=== PATIENT | male | born 1950 ===

== ENCOUNTER 2022-12-28 12:01 | Outpatient (CLI) | payer SELFPAY | END 2022-12-28 12:02 | disposition short-term general hospital (02) | LOC: EMS 12:01 | DX: R41.82 Altered mental status, unspecified (principal); R61 Generalized hyperhidrosis; I10 Essential (primary) hypertension; R00.0 Tachycardia, unspecified; I48.91 Unspecified atrial fibrillation; R47.9 Unspecified speech disturbances | CPT/HCPCS: A0425; A0427 ==

== ENCOUNTER 2023-01-25 09:56 | Outpatient (CLI) | payer MEDICARE ==
--- NOTE | 2023-01-26 12:53 | XRAY Report ---
PROCEDURE: Foot 3 View RT INDICATIONS: RIGHT FOOT SPRAIN TECHNIQUE: 3 views of the foot were acquired. COMPARISON: None. FINDINGS: Bones: No displaced factors. Wispy, indistinct linear calcifications along the dorsal anterior talus and navicular, and lateral to the calcaneocuboid articulation are seen. These may be small cortical avulsion fractures. Bone alignment is otherwise normal No suspicious bony lesions. Soft tissues: No suspicious soft tissue calcifications or masses. Mild peripheral vascular calcifi cation. IMPRESSION: Possible mid to hindfoot cortical avulsion fractures versus degenerative osteophytes. Correlate with site of tenderness. Reviewed by: Elena Avila MD on 01/26/2023 12:51 PM PDT Approved by: Elena Avila MD on 01/26/2023 12:51 PM PDT Station ID: [id number]
== END 2023-01-25 23:59 | disposition home or self-care (01) ==
LOC: DI.S 09:56
PROVIDERS: ATTEND Emergency Medicine
DX: S93.611A Sprain of tarsal ligament of right foot, initial encounter (principal)

== ENCOUNTER 2023-10-03 08:00 | Outpatient (CLI) | payer MEDICARE | END 2023-10-03 23:59 | disposition critical access hospital (66) | LOC: EMS 08:00 | DX: R41.82 Altered mental status, unspecified (principal); R06.89 Other abnormalities of breathing; R45.6 Violent behavior | CPT/HCPCS: A0425; A0427 ==

== ENCOUNTER 2023-10-03 08:39 | Emergency (ER) | payer MEDICARE ==
[2023-10-03] MEDS: SODIUM CHLORIDE 0.9% 1,000 ML IV STA (09:18)
[2023-10-03 09:33] LABS: BASOPHILS # (AUTO) 0.1 10^3/uL (0.0-0.1); BASOPHILS % (AUTO) 0.6 %; EOSINOPHILS # (AUTO) 0.1 10^3/uL (0.0-0.7); EOSINOPHILS % (AUTO) 1.2 %; HCT - HEMATOCRIT 43.4 % (42.0-52.0); HGB - HEMOGLOBIN 14.7 g/dL (14.0-18.0); LYMPHOCYTES # (AUTO) 0.9 10^3/uL (1.5-3.5); MEAN CORPUSCULAR HEMOGLOBIN 33.1 pg (27.0-31.0); MEAN CORPUSCULAR HGB CONC 33.9 g/dL (32.0-36.0); MEAN CORPUSCULAR VOLUME 97.7 fL (80.0-94.0); MEAN PLATELET VOLUME 9.4 fL (7.4-11.4); MONOCYTES # (AUTO) 0.5 10^3/uL (0.0-1.0); MONOCYTES % (AUTO) 5.1 %; NEUTROPHILS # (AUTO) 8.3 10^3/uL (1.5-6.6); NEUTROPHILS % (AUTO) 83.7 %; PLT - PLATELET COUNT 183 10^3/uL (130-450); RED BLOOD COUNT 4.44 10^6/uL (4.70-6.10); WHITE BLOOD COUNT 9.9 x10^3/uL (4.8-10.8)
[2023-10-03 09:48] LABS: ALBUMIN 4.6 g/dL (3.2-5.5); ALBUMIN/GLOBULIN RATIO 1.9 (1.0-2.2); BILIRUBIN,TOTAL 0.7 mg/dL (0.2-1.0); CALCIUM 9.6 mg/dL (8.5-10.3); CREATININE 1.1 mg/dL (0.6-1.3); POTASSIUM 4.1 mmol/L (3.5-4.5)
--- NOTE | 2023-10-03 09:49 | CT Report ---
PROCEDURE: Head WO INDICATIONS: syncopal episode TECHNIQUE: Noncontrast 4.5 mm thick angled axial sections acquired from the foramen magnum to the vertex. For r adiation dose reduction, the following was used: automated exposure control, adjustment of mA and/or kV according to patient size. COMPARISON: None. FINDINGS: Image quality: Excellent. CSF spaces: Basal cisterns are patent. No extra-axial fluid collections. Ventricles are normal in size and shape. Brain: No midline shift. No intracranial masses or hemorrhage. Andrade-white matter interface is norm al. Skull and face: Calvarium and visualized facial bones are intact, without suspicious lesions. Sinuses: Visualized sinuses and mastoids are clear. IMPRESSION: Normal noncontrast head CT for age, without a cause of syncope identified. No intracranial hemorrhage is seen. To the limits of this noncontrast study, no findings of masses or mass effect can be seen. Reviewed by: Leonel Dejesus MD on 10/03/2023 8:48 AM MELYSSA Approved by: Leonel Dejesus MD on 10/03/2023 8:48 AM [email or web address] Station ID: [id number]
[2023-10-03 10:45] LABS: B. PARAPERTUSSIS- RESP PCR PAN NOT DETECTED; B. PERTUSSIS- RESP PCR PANEL NOT DETECTED; C. PNEUMONIAE- RESP PCR PANEL NOT DETECTED; CORONAVIRUS 229E-RESP PCR NOT DETECTED; CORONAVIRUS HKU1-RESP PCR NOT DETECTED; CORONAVIRUS NL63-RESP PCR NOT DETECTED; CORONAVIRUS OC43-RESP PCR NOT DETECTED; HUMAN METAPNEUMOVIRUS NOT DETECTED; INFLUENZA A- RESP PCR PANEL NOT DETECTED; INFLUENZA B - RESP PCR PANEL NOT DETECTED; M. PNEUMONIAE- RESP PCR PANEL NOT DETECTED; PARAINFLUENZA VIRUS 1 NOT DETECTED; PARAINFLUENZA VIRUS 2 NOT DETECTED; PARAINFLUENZA VIRUS 3 NOT DETECTED; PARAINFLUENZA VIRUS 4 NOT DETECTED; RHINOVIRUS/ENTEROVIRUS NOT DETECTED; RSV- RESP PCR PANEL NOT DETECTED; SARS-CoV-2 -RESP PCR PANEL NOT DETECTED
--- NOTE | 2023-10-03 12:05 | MRI Report ---
PROCEDURE: Brain WO INDICATIONS: altered level of consciousness, possible stroke TECHNIQUE: Noncontrast axial T1 spin echo, axial T2 fast spin echo, sagittal and axial FLAIR, coronal T2 fast sp in echo, axial gradient echo, axial diffusion and ADC through the brain. COMPARISON: CT head from the same day. FINDINGS: Image quality: Excellent. CSF Spaces: Basal cisterns are patent. No extra-axial fluid collections. Ventricles are normal in size and shape. Brain: No intracranial masses or hemorrhage. Andrade/white matter interface is normal. Age-related vol ume loss is seen. There is also mild periventricular and deep white matter chronic small vessel ische marcella changes. Brainstem appears normal. Diffusion-weighted images demonstrate no acute ischemic insu lt. No chronic ischemic insults. Normal intravascular flow voids are present. Skull and face: Calvarium has normal marrow signal. Orbits appear normal. Sinuses: Sinuses and mastoids are clear. IMPRESSION: 1. No acute infarction. No acute intracranial bleed, midline shift or mass effect. 2. Age-related volume loss and mild periventricular and deep white matter chronic ischemic small vess el disease. Reviewed by: Bud Kay MD on 10/03/2023 12:03 PM PDT Approved by: Bud Kay MD on 10/03/2023 12:03 PM PDT Station ID: [id number]
--- NOTE | 2023-10-03 12:59 | ED Physician Documentation ---
History of Present Illness - Stated complaint Stated Complaint: AMS - Chief complaint Chief Complaint: Neuro - History obtained from History obtained from: Family, EMS - Additonal information Additional information: The patient is brought to the emergency department by EMS for chief complaint of altered mental status. The patient had been sitting at the table and had left the room but came back in to find the patient still sitting in his chair but slumped over with sonorous respirations. She tried to awaken him but he did not respond so she began to lower him to the ground. However, the patient began to wake up and tried to push his away. She called EMS who arrived to find the patient still combative and so they gave him 5 mg of Versed which did seem to calm him down. The patient has been awake but repeatedly asking what happened and where he is. The patient denies any complaints. His states that he normally is alert and oriented completely. The patient per had a similar episode last fall and had subsequent follow-up with neurology as well as some cardiac workup and a full inpatient workup while in the hospital and no reason to go for the patient's syncopal episode and altered mental status. reports that an EEG was done by the neurologist and the patient was not found to have anything to indicate seizures. states she did not see or hear any seizure activity today. PD PAST MEDICAL HISTORY - Present Medications Home Medications: Ambulatory Orders Medication Instructions Recorded Confirmed Metoprolol Succinate 100 mg PO DAILY 10/03/23 10/03/23 - Allergies Allergies/Adverse Reactions: Allergies Allergy/AdvReac Type Severity Reaction Status Date / Time No Known Drug Allergies Allergy Verified 10/03/23 08:51 - Social History Does the pt smoke?: No Smoking Status: Never smoker PD ED PE NORMAL - Vitals Vital signs reviewed: Yes - General General: No acute distress, Well developed/nourished, Other (Patient is awake but seems confused and repeatedly asks "why am I here".) - HEENT HEENT: Atraumatic, PERRL, EOMI, Moist mucous membranes - Neck Neck: Supple, no meningeal sign - Cardiac Cardiac: RRR, No murmur - Respiratory Respiratory: No respiratory distress, Clear bilaterally - Abdomen Abdomen: Soft, Non tender, Non distended - Derm Derm: Normal color, Warm and dry - Extremities Extremities: No deformity - Neuro Neuro: airset molder 2-12 intact, No motor deficit, No sensory deficit, Normal speech (But slowed), Other (Awake, answering some questions but not entirely alert.) - Psych Psych: Normal mood, Normal affect Results - Vitals Vitals: Oxygen O2 Source Room air - EKG (time done) 0941 EKG releavant findings:: EKG personally interpreted by author of this note. Relevant findings are: Rate: Rate (enter#) (70) Rhythm: NSR [place]: Normal Intervals: Prolonged RI QRS: Normal Ischemia: Normal ST segments Compare to prior EKG: Unchanged from prior EKG Computer interpretation: Agree with computer - Labs Labs: Laboratory Tests 10/03/23 10/03/23 10/03/23 09:16 09:24 09:29 WBC 9.9 RBC 4.44 L Hgb 14.7 Hct 43.4 MCV 97.7 H MCH 33.1 H MCHC 33.9 RDW 12.0 Plt Count 183 MPV 9.4 Neut # (Auto) 8.3 H Lymph # (Auto) 0.9 L [place] # (Auto) 0.5 Eos # (Auto) 0.1 Baso # (Auto) 0.1 Absolute Nucleated RBC 0.00 Nucleated RBC % 0.0 Sodium 135 Potassium 4.1 Chloride 99 L Carbon Dioxide 28 Anion Gap 8.0 BUN 14 Creatinine 1.1 Estimated GFR (MDRD) 65 L Glucose 123 H Calcium 9.6 Total Bilirubin 0.7 AST 26 ALT 31 Alkaline Phosphatase 64 Total Protein 7.0 Albumin 4.6 Globulin 2.4 Albumin/Globulin Ratio 1.9 Lipase 12 Nasal Adenovirus (PCR) NOT DETECTED Nasal B. parapertussis DNA (PCR) NOT DETECTED Nasal Coronavir 229E PCR NOT DETECTED Nasal Coronavir HKU1 PCR NOT DETECTED Nasal Coronavir NL63 PCR NOT DETECTED Nasal Coronavir OC43 PCR NOT DETECTED Nasal Enterovir/Rhinovir PCR NOT DETECTED Nasal Influenza B PCR NOT DETECTED Nasal Influenza A PCR NOT DETECTED Nasal Parainfluen 1 PCR NOT DETECTED Nasal Parainfluen 2 PCR NOT DETECTED Nasal Parainfluen 3 PCR NOT DETECTED Nasal Parainfluen 4 PCR NOT DETECTED Nasal RSV (PCR) NOT DETECTED Nasal B.pertussis DNA PCR NOT DETECTED Nasal C.pneumoniae (PCR) NOT DETECTED Eric Human Metapneumo PCR NOT DETECTED Nasal M.pneumoniae (PCR) NOT DETECTED Nasal SARS-CoV-2 (PCR) NOT DETECTED - Rads (name of study) Head CT Relevant Findings:: Final report received, See rad report (White matter disease, otherwise negative) MRI brain Relevant Findings:: Final report received, See rad report (Negative) PD Medical Decision Making - ED course Complexity details: reviewed results, re-evaluated patient, considered differential, d/w patient, d/w family ED course: The patient was given IV fluids and worked up with labs, EKG, CT of the head, UA, and ultimately, CT MRI of the brain. He did progressively become more alert though he did not really remember the details of exactly what had happened. I had a long discussion with the patient and his and at this point, given that neurology has told them they do not really have anything else to workup and they do not know why this happens, the patient should follow-up with his primary doctor to discuss whether he wants a second opinion or whether he needs to potentially see a wind turbine controls engineer. I am not sure exactly what caused his episode today. Given the confusion and combativeness as well as decreased alertness afterward, it is suspicious for seizure. However, the neurologist has addressed this possibility and is not convinced this is the reason, and it will have to be sorted out within the realm of neurology. The patient has had 2 episodes very far apart and unless he begins having more episodes, He will need follow-up with his primary doctor. I have advised him that perhaps it would be good for him to see a wind turbine controls engineer as well if he has not already. It does sound like he had quite a bit of workup including cardiology workup while he was admitted the first time this happened. Patient stable for discharge. We have discussed the usual indications for return and patient and are in agreement with discharge. Departure - Departure Disposition: 01 Home, Self Care Clinical Impression: Syncope Qualifiers: Syncope type: unspecified Qualified Code(s): R55 - Syncope and collapse Condition: Stable Instructions: ED Fainting Unkn Cause Comments: Your labs, EKG, CT, and MRI all look good. It is not clear what is causing the episodes you had today and back in the fall. Sounds like you have had fairly extensive specialty evaluation to try to get to the bottom of this and have been offered some options for treatment which seem less than ideal to you. For now, the best plan is to follow-up with your primary doctor to determine whether a cardiology referral is in order and also, whether you should see your neurologist again, get a second opinion, or have an event monitoring study. No emergent condition has been identified today. You may always return if you have another such episode. Forms: PCP List Discharge Date/Time: 10/03/23 13:21
[2023-10-03 13:08] VITALS: BP 153/83; O2SAT 97
== END 2023-10-03 13:21 | disposition home or self-care (01) ==
LOC: EDUNIT# → ED 08:39
DX: R55 Syncope and collapse (principal); Z79.899 Other long term (current) drug therapy
CPT/HCPCS: 36415; 80053; 83690; 85025; 87633; 93005; 96360; 99284